=== PATIENT | male | born 1960 | race Caucasian/White ===

== ENCOUNTER 2025-08-24 11:12 | Outpatient (CLI) | payer MEDICARE, BC ==
[~2025-08-24 11:12] MED LIST: iohexol 300mg/ml 100ml inj. ONE; tetracaine 1% (10mg/ml) pres. free inj. ONE
--- NOTE | 2025-08-24 12:05 | RADIOLOGY REPORT ---
Exam: CT CT CHEST W/ IV CONTRAST Reason for study/ Clinical History: PLEURAL EFFUSION IN OTHER CONDITIONS CLASSIFIED ELSEWHERE Comparison Study: None Exam Date: 08/24/2025 11:19 AM Radiation Dose Information: CT Dose: CTDI volume is 19 mGy. Dose-length product is 695 mGy*cm Contrast: Type of contrast: Omnipaque 300 Contrast inject: 100 cc Contrast wasted:0 cc Technique: After the uneventful administration of intravenous contrast intravenously, CT imaging was performed through the chest. Coronal and sagittal reformations were performed by the technologist. Findings: Lower neck: Unremarkable. Lungs and Pleura: Bibasilar atelectasis/scarring. Small left pleural effusion is noted. There is rim enhancing fluid measuring 3.7 cm medially in the left lower lung. 6 mm nodular density in the right middle lobe with mild surrounding ground-glass opacity. Lymph nodes: No mediastinal, hilar, or axillary lymphadenopathy. Cardiovascular and Mediastinum: No significant pericardial effusion. No significant coronary calcifications. Right PICC. Osseous and soft tissues: No suspicious osseous lesions. Upper abdomen: No acute abnormality in the visualized upper abdomen. IMPRESSION: Rim enhancing 3.7 cm fluid collection in the left lower lung. This likely represents loculated pleural collection possibly empyema. The other differentials include pulmonary abscess. Neoplasm is possible but deemed less likely. Recommend pulmonology consultation. 6 mm nodular density in the right middle lobe with surrounding ground-glass opacity. This is nonspecific with differentials including infection/ inflammation or neoplasm. Recommend follow-up CT chest in 3 months.
== END 2025-08-24 23:59 | disposition home or self-care (01) ==
LOC: RAD 11:12
PROVIDERS: ATTEND Internal Medicine
DX: R91.1 Solitary pulmonary nodule (principal); J85.2 Abscess of lung without pneumonia; J90 Pleural effusion, not elsewhere classified; J91.8 Pleural effusion in other conditions classified elsewhere
CPT/HCPCS: 71260; J3490; Q9967